=== PATIENT | male | born 1985 | race Caucasian/White ===

== ENCOUNTER 2020-11-20 06:53 | Outpatient (CLI) | payer BC, SELFPAY ==
--- NOTE | ~2020-11-20 | XR_ITS ---
XR elbow RT 2V DATE: 11/20/2020 07:12 INDICATION: Chronic right elbow pain TECHNIQUE: AP and lateral views COMPARISON: None FINDINGS: No fracture or dislocation or joint effusion is detected. No periosteal reaction or bone de struction. Joint spaces are preserved. IMPRESSION: No significant abnormality Reviewed, dictated and finalized at location A. IMPRESSION: No significant abnormality
== END 2020-11-20 06:54 | disposition home or self-care (01) ==
LOC: ANHIMG 06:58
PROVIDERS: PCP Internal Medicine; Visit Provider Nurse Practitioner
DX: M25.521 Pain in right elbow (principal)
CPT/HCPCS: 73070

== ENCOUNTER 2021-08-12 08:01 | Outpatient (CLI) | payer BC, SELFPAY ==
--- NOTE | 2021-08-18 12:30 | WPDHOMESLEEP ---
Sleep Study - Home Unattended Date of Study: 08/12/21 Ordering Provider: Satya Foster DO Interpreting Provider: Donna Casper MD Home Sleep Study Type: Apnea Link Air Height: 1.91 m Weight: 102.058 kg Body Mass Index: 28.1 Neck Circumference (inches): 16.25 [place]: 6 Reason for Sleep Study Poor nighttime sleep, waking often, snoring, daytime fatigue. Sleep History Herbert Bajwa is a 36 year old male with poor sleep. He wakes frequently at night. He snores loudly. He has difficulty falling asleep and staying asleep. He is excessively sleepy in the daytime. He does not awaken from sleep feeling short of breath. He rarely awakens at night with heartburn, belching or coughing. He frequently snores and is frequently loud enough that others complain about it. He occasionally has trouble sleeping with a cold. He does not wake up gasping for breath at night. He does not have breathing problems at night observed by others. He occasionally sweats excessively night. He does not notice his heart pounding or beating irregularly night. He rarely falls asleep during the day, rarely falls asleep involuntarily or while driving. he does not have loss of muscle tone with strong emotion. He does not have daytime difficulties due to excessive sleepiness. 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 He does not feel paralyzed on waking or falling asleep. He does not have vivid dreamlike scenes upon awakening or falling asleep. Does not feel afraid to go to sleep. He rarely has nightmares. He rarely remembers his dreams. He occasionally has racing thoughts. He occasionally feels sad, depressed or anxious. He does not have muscular tension. He occasionally notices parts his body jerking. He does not kick at night. He rarely has crawling or aching feelings in his legs and rarely has any kind of leg pain at night. He does not have morning jaw pain. He does not grind his teeth during sleep. He rarely is bothered by pain during the day, rarely awakened by pain at night. He frequently wakes up feeling stiff in the morning with sore, achy muscles and pain in the neck and spine. He has fatigue, sexual problems, and headaches. Normal bedtime is 9:00 p.m., taking 1-2 hours fall asleep, typically waking 3-5 times throughout the night for unclear reasons. He rolls over, repositioned and tries to return to sleep. He is usually able to return to sleep within 5 minutes. He wakes in the morning at 4:00 a.m.. On weekends his bedtime is 10:00 p.m. and wake time is 6:00 a.m.. He estimates getting 6 hours of sleep on a good night. He does not take naps in the afternoon and evening. Short naps are not refreshing. He is usually drowsy in the morning for an hour or longer. He feels better in the morning compared to other times of day. Habits: Never smoked tobacco. Caffeine 2 servings a day. Alcohol 1-2 servings a day. No recreational drugs. [facility] Past Medical History Medical History (Updated 08/18/21 @ 12:40 by Donna Casper MD) Acid reflux Elbow pain, right Pure hypercholesterolemia Family History Family History Mother Patient's mother is in good health Father Patient's father is in good health Sibling Patient's sister is in good health Other Family history of cardiovascular disease Social History Social History Smoking status: Never smoker Second hand tobacco smoke exposure: Yes Alcohol intake: current Alcohol use details: social Substance use: never Medications Home Medications Medication Instructions Recorded Confirmed Type atorvastatin 10 mg tablet 10 mg PO DAILY #90 tablet 08/16/21 Rx Sleep Procedure This test was performed using 4 channel monitoring including respiratory effort channel, snoring channel, heart rate channel, and oxygen saturation channel. This study was scored using [facility] guidelines. Sleep
[2021-08-18 12:44] VITALS: BMI 28.1
== END 2021-08-13 12:56 | disposition home or self-care (01) ==
PROVIDERS: PCP Internal Medicine; Visit Provider Internal Medicine
DX: G47.33 Obstructive sleep apnea (adult) (pediatric) (principal)
CPT/HCPCS: 95806

== ENCOUNTER 2023-01-04 09:14 | Outpatient (CLI) | payer BC, SELFPAY ==
--- NOTE | 2023-01-26 21:01 | WPDSLEEPSTUD ---
Sleep Study Date of Study: 01/04/23 Ordering Provider: Lea Collins NP Interpreting Physician: Donna Casper MD Sleep Study Type: Split Polysomnogram Height: 1.91 m Weight: 102.058 kg Body Mass Index: 28.1 Neck Circumference (inches): 16.25 [place]: 7 Reason for Sleep Study * 08/12/2021- home sleep test using ApneaLink, moderate obstructive sleep apnea with an apnea-hypopnea index 16.2, severe in supine position 38.9, desaturation to 87% and frequent snoring.? ? Sleep History Herbert Bajwa is a 37-year-old man with sleep apnea diagnosed on home sleep test on August 12, 2021. He did not have a CPAP titration, and he did not try Auto PAP. He now presents for a split night study to get a diagnosis and treatment in one night. He never awakens from sleep feeling short of breath. He never wakes at night with heartburn, belching or coughing.??He occasionally snores, frequently snores loudly enough that others complain. He occasionally has trouble sleeping when he has a cold. He never wakes up gasping for breath during the night. He rarely has breathing problems at night reported to him by others. He frequently sweats excessively at night. He never notices his heart pounding or beating irregularly during the night. He rarely falls asleep during the day. He rarely falls asleep involuntarily, rarely falls asleep while driving. He never experiences loss of muscle tone with strong emotion. 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 He never feels paralyzed on waking or falling asleep. He never experiences vivid dreams upon waking or falling asleep. He never feels afraid of going to sleep. He never has nightmares. He never recalls his dreams. He occasionally has thoughts racing through his mind. He rarely feels sad or depressed. He rarely feels anxiety. He occasionally notices parts of his body jerk. He occasionally kicks during the night. He occasionally feels crawling or aching feelings in his legs. He occasionally feels leg pain at night. He rarely has morning jaw pain, rarely grinds his teeth at night. He rarely feels bothered by pain during the day, is never awakened by pain during the night. He occasionally wakes up feeling stiff in the morning, and he occasionally wakes feeling sore or achy, occasionally wakes with pain in his neck, spine, or joints. Normal bedtime is between 11:00 p.m. and 2:00 a.m., usually falling asleep falling asleep within 15-30 minute. He typically gets about 5-6 hours of sleep per night. His wake up time is 6-7 a.m.. he wakes between 4 and 5 times during the night, rolls over, tries to return to sleep. On weekends he goes to bed earlier, 10:00 p.m.. He also wakes at the same time, between 6:00 a.m. and 7:00 a.m.. He does not take naps in the afternoon or evening. A short nap is not refreshing. He is drowsy for an hour after waking. Habits:??Tobacco: Never Caffeine: 3 bottles per day. Alcohol: 3-4 only on the weekends Recreational substances: none PMFSH Past Medical History Medical History (Updated 01/26/23 @ 21:29 by Donna Casper MD) Acid reflux Elbow pain, right Encounter to establish care Obstructive sleep apnea (~08/2021) Pure hypercholesterolemia Family History Family History Mother Patient's mother is in good health Father Patient's father is in good health Sibling Patient's sister is in good health Other Family history of cardiovascular disease Social History Social History (Updated 12/14/22 @ 08:17 by Varsha Alston MA) Smoking status: Never smoker Second hand tobacco smoke exposure: Yes Alcohol intake: current Alcohol use details: social Substance use: never Substance use type: does not use Current Housing: Decline to Answer Concerned About Future Housing: Decline to Answer Difficulty Paying Gas/Electric Bills: Decline to Answer Difficulty Paying
[2023-01-26 21:03] VITALS: BMI 28.1
== END 2023-01-05 07:07 | disposition home or self-care (01) ==
LOC: ANHCSM 09:15
PROVIDERS: PCP Nurse Practitioner Family; Visit Provider Nurse Practitioner Family
DX: G47.33 Obstructive sleep apnea (adult) (pediatric) (principal)
CPT/HCPCS: 95811

== ENCOUNTER 2023-06-06 11:14 | Emergency (ER) | payer BC, SELFPAY ==
[2023-06-06 11:40] VITALS: BP 123/80; PULSE 75; RESP 16; TEMP 36.2; O2SAT 98
--- NOTE | 2023-06-06 11:51 | ED.GENADULT ---
HPI - General Adult General Chief complaint: Back Pain/Injury Stated complaint: back pain Source: patient, RN notes reviewed and old records reviewed Mode of arrival: ambulatory Limitations: no limitations History of Present Illness HPI narrative: 38-year-old male patient presents to [facility] with complaint of bilateral lower back pain this started Monday after cleaning crotch. Patient denies known injury. Patient states has chronic back issues and this is the 3rd time he has thrown his back out this year. Patient states tried stretching home and rest without relief. Related Data Allergies Allergy/AdvReac Type Severity Reaction Status Date / Time No Known Allergies Allergy Verified 06/06/23 11:45 Review of Systems Constitutional: Constitutional: Reports no additional constitutional complaints, Denies body ache(s), Denies chills, Denies fatigue, Denies fever(s) and Denies headache(s) Eyes: Eyes: Reports no additional eye complaints and Denies blurry vision ENT: Reports system reviewed and no additional complaints, except as documented, Denies vertigo, Denies dizziness, Denies ear discharge, Denies otalgia, Denies facial pain, Denies headache(s), Denies nasal congestion, Denies nasal discharge, Denies sinus pain, Denies sinus pressure and Denies sore throat Cardiovascular: Cardiovascular: Reports no additional cardiovascular complaints, Denies chest pain, Denies chest pain at rest, Denies rapid heart rate and Denies dyspnea Respiratory: Respiratory: Reports no additional respiratory complaints, Denies chest congestion, Denies cough, Denies pain on inspiration, Denies pain with cough and Denies dyspnea Gastrointestinal: Gastrointestinal: Denies abdominal pain, Denies diarrhea, Denies nausea and Denies vomiting Musculoskeletal: Musculoskeletal: Reports back pain and Reports muscle cramps Integumentary/Breasts: Skin/Breast: Denies rash Neurologic: Reports system reviewed and no additional complaints, except as documented, Denies vertigo, Denies dizziness and Denies headache(s) Endocrine: Endocrine: Denies fatigue PMFSH Past Medical History Medical History Acid reflux BMI 28.0-28.9,adult Elbow pain, right Encounter to establish care Hyperlipidemia Obstructive sleep apnea (~08/2021) Pure hypercholesterolemia Family History Family History Mother Patient's mother is in good health Father Patient's father is in good health Sibling Patient's sister is in good health Other Family history of cardiovascular disease Social History Social History Smoking status: Never smoker Second hand tobacco smoke exposure: Yes Alcohol intake: current Alcohol use details: social Substance use: never Substance use type: does not use Current Housing: Decline to Answer Concerned About Future Housing: Decline to Answer Difficulty Paying Gas/Electric Bills: Decline to Answer Difficulty Paying for Meds: Decline to Answer Currently Unemployed: Decline to Answer Education: Decline to Answer Difficulty w/ Childcare or Family Care: Decline to Answer Comments At the time of my signature, I reviewed and agree with the nursing past medical, surgical, social, and family history. There is no relevant family history pertinent to the patient complaint. Exam Const: General: cooperative, healthy appearing, no acute distress and well nourished Nutritional Appearance: well nourished Orientation/consciousness: patient oriented x3 Limitations: no limitations HENMT: Head: normal to inspection and normocephalic Ears: external ears normal Face/Nose/Sinus: normal facial exam Face and sinus: normal facial exam Mouth: Yes Normal oral and palatal mucosa present, Yes oropharynx normal and Yes moist mucous membranes Throat: no uvular edema Eyes: General:
== END 2023-06-06 11:58 | disposition home or self-care (01) ==
PROVIDERS: Emergency Provider Registered Nurse; PCP Nurse Practitioner Family
DX: S39.012A Strain of muscle, fascia and tendon of lower back, initial encounter (principal); X58.XXXA Exposure to other specified factors, initial encounter; E78.5 Hyperlipidemia, unspecified; E78.00 Pure hypercholesterolemia, unspecified; K21.9 Gastro-esophageal reflux disease without esophagitis
CPT/HCPCS: 99213; G0463

== ENCOUNTER → 2023-06-19 11:15 | Outpatient (CLI) | payer BC, SELFPAY ==
--- NOTE | ~2023-06-19 | XR_ITS ---
EXAMINATION: XR lumbar spine min 4V DATE: 06/19/2023 11:28 INDICATION: Low back pain TECHNIQUE: Anteroposterior, lateral, and bilateral oblique views of the lumbar spine, and cone-down l ateral view of the lumbosacral junction were obtained. COMPARISON: None. FINDINGS: There are 6 nonrib-bearing lumbar segments which will be designated L1-L6. 8 degree levocurvature madhu sured between T12 and L3. Sagittal alignment is normal. Vertebral body heights are normal. Mild disc height loss with mild degenerative endplate changes throughout the lumbar and visualized lower thorac ic spine. No pars interarticularis defects. Multilevel mild bilateral lumbar facet osteoarthritis. Sa cral arches are intact. Bilateral sacral joint spaces are relatively preserved. IMPRESSION: 1. 8 degree thoracolumbar levocurvature with mild lumbar and lower thoracic spondylosis. 2. 6 nonrib-bearing lumbar segments. Reviewed, dictated and finalized at location B. IMPRESSION: 1. 8 degree thoracolumbar levocurvature with mild lumbar and lower thoracic spo ndylosis. 2. 6 nonrib-bearing lumbar segments.
== END ==
PROVIDERS: PCP Family Medicine; Visit Provider Nurse Practitioner Family
DX: M47.894 Other spondylosis, thoracic region (principal); M47.896 Other spondylosis, lumbar region
CPT/HCPCS: 72110

== ENCOUNTER 2023-12-04 08:28 | Outpatient (CLI) | payer BC, SELFPAY ==
--- NOTE | 2023-12-04 08:37 | EST_ITS ---
Patient Info Name: Herbert Bajwa Age: 38 years : 1985 Gender: Male Ht: 75 in Wt: 220 lbs BSA: 2.31 m2 HR: 63 bpm BP: 129 / 72 mmHg Exam Date: 12/04/2023 8:45 AM Exam Location: [facility] Patient Status: Outpatient Admit Date: 12/04/2023 Staff Ordering Physician: Lea Collins NP Attending Provider: Lea Collins NP Exercise Technologist: Anh Almeida RDCS Exercise Physician: Chucho Jessica DO Exam Type: CA stress test treadmill Study Info A treadmill exercise stress test was performed. Summary 1. 1. Negative Louis exercise stress test for ischemic ST changes by ECG criteria. 2. 2. Good functional capacity, achieving 12 METs of workload. 3. 3. Hypertensive response to exercise. 4. 4. Appropriate HR response to exercise. 5. 5. Appropriate HR recovery 1 minute post exercise. 6. 6. No imaging with stress testing. 7. 7. Patient informed of the above results. Protocol: Louis Stress ECG Details Stage: REST Duration (min): 1 min : 6 sec Speed (mph): 0.0 Grade (%): 0 HR (bpm): 64 SBP (mmHg): 129 DBP (mmHg): 72 METS: --- Stage: REST Duration (min): 7 min : 48 sec Speed (mph): 0.0 Grade (%): 0 HR (bpm): 75 SBP (mmHg): 129 DBP (mmHg): 72 METS: --- Stage: STAGE 1 Duration (min): 1 min : 0 sec Speed (mph): 1.7 Grade (%): 10 HR (bpm): 98 SBP (mmHg): 129 DBP (mmHg): 72 METS: --- Stage: STAGE 1 Duration (min): 2 min : 0 sec Speed (mph): 1.7 Grade (%): 10 HR (bpm): 101 SBP (mmHg): 129 DBP (mmHg): 72 METS: --- Stage: STAGE 1 Duration (min): 3 min : 0 sec Speed (mph): 1.7 Grade (%): 10 HR (bpm): 102 SBP (mmHg): 135 DBP (mmHg): 69 METS: --- Stage: STAGE 2 Duration (min): 1 min : 0 sec Speed (mph): 2.5 Grade (%): 12 HR (bpm): 108 SBP (mmHg): 135 DBP (mmHg): 69 METS: --- Stage: STAGE 2 Duration (min): 2 min : 0 sec Speed (mph): 2.5 Grade (%): 12 HR (bpm): 115 SBP (mmHg): 151 DBP (mmHg): 63 METS: --- Stage: STAGE 2 Duration (min): 3 min : 0 sec Speed (mph): 2.5 Grade (%): 12 HR (bpm): 116 SBP (mmHg): 151 DBP (mmHg): 63 METS: --- Stage: STAGE 3 Duration (min): 1 min : 0 sec Speed (mph): 3.4 Grade (%): 14 HR (bpm): 126 SBP (mmHg): 140 DBP (mmHg): 47 METS: --- Stage: STAGE 3 Duration (min): 2 min : 0 sec Speed (mph): 3.4 Grade (%): 14 HR (bpm): 133 SBP (mmHg): 140 DBP (mmHg): 47 METS: --- Stage: STAGE 3 Duration (min): 3 min : 0 sec Speed (mph): 3.4 Grade (%): 14 HR (bpm): 139 SBP (mmHg): 163 DBP (mmHg): 52 METS: --- Stage: STAGE 4 Duration (min): 1 min : 0 sec Speed (mph): 4.2 Grade (%): 16 HR (bpm): 156 SBP (mmHg): 163 DBP (mmHg): 52 METS: --- Stage: STAGE 4 Duration (min): 2 min : 0 sec Speed (mph): 4.2 Grade (%): 16 HR (bpm): 164 SBP (mmHg): 224 DBP (mmHg): 60 METS: ---
--- NOTE | 2023-12-04 09:13 | ECG_ITS ---
Test Date: 2023-12-04 09:18:59 Measurements Intervals [place] Rate: 86 P: 16 VA: 147 QRS: 13 QRSD: 94 T: 36 QT: 362 QTc: 434 Interpretive Statements SINUS RHYTHM NORMAL ELECTROCARDIOGRAM No previous ECG available for comparison Electronically Signed On 12-05-2023 07:19:02 CDT by Harjinder Huddleston M.D.
== END 2023-12-04 08:29 | disposition home or self-care (01) ==
PROVIDERS: PCP Family Medicine; Visit Provider Nurse Practitioner Family
DX: E78.5 Hyperlipidemia, unspecified (principal); R68.89 Other general symptoms and signs; Z82.49 Family history of ischemic heart disease and other diseases of the circulatory system
CPT/HCPCS: 93005; 93017